=== PATIENT | male | born 1945 | race Caucasian/White ===

== ENCOUNTER → 2018-02-21 | Outpatient (CLI) | payer OTHER ==
[~2018-02-21] MED LIST: ASPIRIN EC81 M1 PO; ATORVASTATIN CA40 MG PO; CENTRUM SILVER1 EAC4 PO; FISH OIL 1,001000 M1 PO; LASIX 40 MG TAB40 M2 PO; LISINOPRIL10 MG PO; LOPRESSOR50 PO; POTASSIUM20 PO; VITAMIN E400 UNIT PO
== END | disposition home or self-care (01) ==
LOC: M.LAB 06:14
DX: R35.8 Other polyuria (principal)